=== PATIENT | female | born 1985 | race African-American/Black ===

== ENCOUNTER 2025-01-18 19:08 | Emergency (ER) | payer BC, MEDICAID, MEDICARE ==
[2025-01-18] MEDS ORDERED: Ibuprofen 800 MG TAB ONE (19:55)
[2025-01-18] MEDS ORDERED: predniSONE 20 MG TAB ONE (19:55)
== END 2025-01-18 20:08 | disposition home or self-care (01) ==
LOC: BURERS 19:08
DX: M02.30 Reiter's disease, unspecified site (principal); M10.9 Gout, unspecified
CPT/HCPCS: 99283; J7512